=== PATIENT | male | born 1975 | race Caucasian/White ===

== ENCOUNTER → 2024-02-20 09:11 | Outpatient (REF) | payer BC, SELFPAY | LOC: RCS 09:11 | PROVIDERS: ATTENDING PHYSICIAN Internal Medicine Cardiovascular Disease; FAMILY PHYSICIAN Family Medicine | DX: R07.89 Other chest pain (principal) | CPT/HCPCS: 93017; 93350 ==

== ENCOUNTER 2024-12-25 06:25 | Day surgery (SDC) | payer BC, SELFPAY | END 2024-12-25 11:22 | disposition home or self-care (01) | LOC: GI 06:25 | PROVIDERS: ATTENDING PHYSICIAN Internal Medicine | DX: R13.10 Dysphagia, unspecified (principal); R12 Heartburn; K44.9 Diaphragmatic hernia without obstruction or gangrene; K31.89 Other diseases of stomach and duodenum | CPT/HCPCS: 43249; 43239; 88305; 88342 ==